=== PATIENT | female | born 2000 | race Hispanic/Latino ===

== ENCOUNTER 2019-05-17 00:31 | Day surgery (SDC) | payer OTHER ==
[2019-05-17 00:59] VITALS: BP 136/85; TEMP 98.5; BMI 36.3
--- NOTE | 2019-05-17 01:25 | PDOC.FPROB ---
FMR OB H&P: Medications - Current Home Medications: Medication Instructions Recorded Confirmed Type 21/Iron Fu/Folic Acid 1 tablet PO DAILY 05/17/19 05/17/19 History [ Complete Caplet] Allergies/Adverse Reactions: Allergies Allergy/AdvReac Type Severity Reaction Status Date / Time No Known Allergies Allergy Verified 05/17/19 00:54 FMR OB H&P: Vital Signs - Maternal Vital signs: Vital Signs - First Documented Temp Pulse Resp BP Pulse Ox 98.5 F 80 18 136/85 96 05/17/19 00:52 05/17/19 00:52 05/17/19 00:52 05/17/19 00:52 05/17/19 00:52 FMR OB H&P: A/P - Problem List (1) Status: Acute Discussion: Date/Time: 05/17/19 0124 PCP: Chelsea HPI: Patient comes in for evaluation of epigastric pain that began at 2337 and resolved around 0030 spontaneously. The pain was a constant pressure that did not come and go. Nothing specifically made it better or worse. She states she ate pizza, mole and pasta today. Denies N/V/D. Denies fevers, chills, sweats. States she has had irregular contractions but nothing consistent. History: OB hx: G1 PMH: denies HTN, DM, asthma PSH: negative Meds: PNV All: NKDA Soc Hx: denies smoking, alcohol, drugs Fam Hx: denies downs, congenital defects REVIEW OF SYSTEMS: Gen: no fever, chills, or sweats Neuro: no numbness/tingling, no weakness ENT: denies congestion Eyes: no visual changes Resp: denies cough, no production, no SOB, no wheeze Card: denies chest pain, no palpitations GI: denies nausea, vomiting, diarrhea : no dysuria, no hematuria Skin: no rash, no erythema Psych: denies hx anxiety/depression Vitals: T: 98.4 R: 18 BP: 134/84 P:68 at: 98% on RA PHYSICAL EXAMINATION: General: NAD, alert and oriented x3 HEENT: EOMI, normal sclera Neck: Supple. Full ROM. Heart/Cardiovascular System: RRR, Cap refill < 3 seconds, no rub, no murmur Lungs/Respiratory System: clear to auscultation bilaterally. No increased work of breathing. Room air. Abdomen/Gastro-Intestinal System: no abdominal tenderness, normal bowel sounds, Gravid Extremities: Warm extremities. No cyanosis or edema. Neuro: No gross deficits appreciated Psychiatry: Awake, Alert and cooperative with exam Skin: no lesions, no rashes Musculoskeletal: Full ROM A/P: This is a 18 yo at 37.5 wks here for epigastric pain now resolved FHT: 115 baseline, mod variability, no decels, accels present Athalia: no contractions # Labor Check - 250/-3, same as office Saturday per patient - Epigastric pain now totally resolved - Denies headache, scotoma, sob, or swelling - Normal pressures - Tolerated PO liquids - Home with precations Addendum - Attending - Attending Attestation Date/Time: 05/17/19 6904 I personally evaluated the patient and discussed the management with Dr. Castrejon. I agree with the History, Examination, Assessment and Plan documented above.
[2019-05-17] MEDS ORDERED: hydrALAZINE 20 MG/ML VIAL SLOW IVP PRN (01:48)
== END 2019-05-17 01:55 | disposition home or self-care (01) ==
LOC: L&D/OP 00:31
PROVIDERS: ATTEND Obstetrics & Gynecology
DX: O99.89 Other specified diseases and conditions complicating pregnancy, childbirth and the puerperium (principal); R10.13 Epigastric pain; Z3A.37 37 weeks gestation of pregnancy; Z79.899 Other long term (current) drug therapy

== ENCOUNTER 2019-05-19 12:11 | Inpatient (IN) | payer OTHER ==
[2019-05-19] MEDS ORDERED: Misoprostol 200 MCG TAB PR PRN (12:16)
[2019-05-19] MEDS ORDERED: Ondansetron PF 4 MG/2 ML Vial IVP PRN ×2 (12:16→15:45)
[2019-05-19] MEDS ORDERED: Docusate 100 MG CAP PO PRN (12:16)
[2019-05-19] MEDS ORDERED: Promethazine HCl 25 MG/ML VIAL IM PRN ×2 (12:16→15:45)
[2019-05-19] MEDS ORDERED: Acetaminophen 500 MG TAB PO PRN (12:16)
[2019-05-19] MEDS ORDERED: Ibuprofen 800 MG TAB PO PRN (12:16)
[2019-05-19] MEDS ORDERED: Lidocaine 1% (PF) 30 ML VIAL SC PRN (12:16)
[2019-05-19] MEDS ORDERED: HYDROcodone/Acetaminophen 5/325 mg Tablet PO PRN ×2 (12:16)
[2019-05-19] MEDS ORDERED: Diphenoxylate HCl/Atropine Tablet PO PRN ×2 (12:16)
[2019-05-19] MEDS ORDERED: Butorphanol Tartrate 1 MG/ML VIAL SLOW IVP PRN (12:16)
[2019-05-19] MEDS ORDERED: hydrALAZINE 20 MG/ML VIAL SLOW IVP PRN (12:16)
[2019-05-19] MEDS ORDERED: NS / Oxytocin 40 units/1000ml 1,000 ML IV PRN (12:16)
[2019-05-19 12:58] VITALS: BMI 35.8
[2019-05-19] MEDS: Lactated Ringer's 1,000 ML IV SCH ×2 (13:27→15:48)
[2019-05-19] MEDS ORDERED: NS w/ Oxytocin 10 units 500 ML IV SCH ×2 (13:30)
[2019-05-19 13:43] LABS: Hemoglobin 11.7 g/dL (12.0-16.0); Mean Corpuscular HGB CONC 33.1 g/dL (32.0-36.0); Mean Corpuscular Hemoglobin 26.3 pg (25.0-35.0); Mean Corpuscular Volume 79.4 fL (78.0-98.0); Mean Platelet Volume 8.4 fL (7.4-10.4); Platelet Count 297 thou/uL (130-400); Red Blood Cell (RBC) Count 4.47 mill/uL (4.00-5.20); White Blood Cell (WBC) Count 11.9 thou/uL (4.8-10.8)
[2019-05-19 14:23] LABS: Syphilis Antibody Nonreactive (Nonreactive); Syphilis Antibody Index 0.05 S/CO (<1.00 Non-Reactive)
[2019-05-19 14:24] LABS: HBSAg Index 0.16 S/CO (0-0.99); Hep B Surf Ag Non-Reactive S/CO (NonReactive)
[2019-05-19] MEDS ORDERED: Lidocaine 1.5%/Epinephrine 1:200,000 5 ML AMPUL IJ ONE (14:54)
[2019-05-19] MEDS ORDERED: Fentanyl 4 mcg/Bup 0.1% Cadd 100 ML ONE ×2 (14:56→22:42)
[2019-05-19] MEDS ORDERED: Acetaminophen 325 MG TAB PO PRN (15:45)
[2019-05-19] MEDS ORDERED: Communication Order-Pharmacy FS SCH (15:45)
[2019-05-19] MEDS ORDERED: ePHEDrine/0.9% NaCl/PF SYRINGE 50 mg/10 ml SLOW IVP PRN (15:45)
[2019-05-19] MEDS ORDERED: Naloxone HCl 0.4 mg/ml Vial IVP PRN ×2 (15:45)
[2019-05-19] MEDS ORDERED: Fentanyl 4 mcg/Bupivacaine 0.1% Cassette 100 ML EPIDURAL SCH (15:45)
[2019-05-19] MEDS ORDERED: Lactated Ringer's 500 ML IV PRN (15:45)
[2019-05-19] MEDS ORDERED: diphenhydrAMINE 50 MG/ML VIAL IVP PRN (15:45)
[2019-05-19] MEDS ORDERED: hydrALAZINE 20 MG/ML VIAL ONE (17:08)
[2019-05-20] MEDS ORDERED: Benzocaine-Menthol 82.5 ML CAN TOP PRN (01:33)
[2019-05-20] MEDS ORDERED: Ondansetron PF 4 MG/2 ML Vial IVP PRN (01:33)
[2019-05-20] MEDS ORDERED: hydrALAZINE 20 MG/ML VIAL SLOW IVP PRN (01:33)
[2019-05-20] MEDS ORDERED: Preparation H Ointment 28 GM TUBE PR PRN (01:33)
[2019-05-20] MEDS ORDERED: Misoprostol 200 MCG TAB VAG PRN (01:33)
[2019-05-20] MEDS ORDERED: Lanolin Ointment 7 GM TUBE TOP PRN (01:33)
[2019-05-20] MEDS ORDERED: Acetaminophen/Codeine 30-300mg Tablet PO PRN ×2 (01:33)
[2019-05-20] MEDS ORDERED: Bisacodyl 10 MG SUPP PR PRN (01:33)
[2019-05-20] MEDS ORDERED: Milk Of Magnesia 30 ML UDCUP PO PRN (01:33)
[2019-05-20] MEDS ORDERED: Zolpidem Tartrate 5 MG TAB PO PRN (01:33)
[2019-05-20] MEDS ORDERED: NS / Oxytocin 40 units/1000ml 1,000 ML IV SCH (01:45)
[2019-05-20] MEDS: Ibuprofen 800 MG TAB PO SCH ×3 (06:34→21:36)
[2019-05-20] MEDS ORDERED: Adacel (T-DAP) 0.5 ML SYRINGE IM ONE (09:00)
[2019-05-20] MEDS: Prenatal Vitamin 1 TAB PO SCH (09:59)
[2019-05-20] MEDS: Docusate Calcium (SURFAK) 240 MG CAP PO SCH ×2 (10:00→21:35)
[2019-05-20] MEDS: Ferrous Sulfate 325 MG TAB PO SCH ×2 (14:20→18:26)
[2019-05-21] MEDS: Ibuprofen 800 MG TAB PO SCH ×2 (05:56→14:58)
[2019-05-21 08:03] VITALS: BP 112/69; TEMP 99
[2019-05-21] MEDS: Prenatal Vitamin 1 TAB PO SCH (08:34)
[2019-05-21] MEDS: Docusate Calcium (SURFAK) 240 MG CAP PO SCH (08:34)
[2019-05-21] MEDS: Ferrous Sulfate 325 MG TAB PO SCH (08:35)
== END 2019-05-21 15:15 | disposition home or self-care (01) | DRG 807 ==
LOC: L&D/OP 12:11 → L&D 12:57 → 3SW 05-20 04:28
PROVIDERS: ADMIT Obstetrics & Gynecology; ATTEND Obstetrics & Gynecology
PROC: 10E0XZZ Delivery of Products of Conception, External Approach (ICD-10-PCS; principal; 2019-05-20)
PROC: 0HQ9XZZ Repair Perineum Skin, External Approach (ICD-10-PCS; 2019-05-20)
DX: O99.814 Abnormal glucose complicating childbirth (principal); Z37.0 Single live birth; Z3A.38 38 weeks gestation of pregnancy; O70.0 First degree perineal laceration during delivery
CPT/HCPCS: 36415; 85027; 86780; 86850; 86900; 86901; 87340; J0360; J2590; J3490

== ENCOUNTER 2019-06-21 22:00 | Inpatient (IN) | payer OTHER ==
[2019-06-21 22:22] LABS: #Basophils 0.1 thou/uL (0.0-0.2); #Eosinphils 0.1 thou/uL (0.0-0.7); #Lymphocytes 1.7 thou/uL (1.20-3.40); #Monocytes 0.6 thou/uL (0.11-0.59); #Neutrophils 7.4 thou/uL (1.40-6.50); %Basophils 0.5 % (0.0-1.0); %Eosinophils 1.5 % (0.0-10.0); %Lymphocytes 17.3 % (28.0-48.0); %Monocytes 6.5 % (0.0-4.0); %Neutrophils 74.2 % (31.0-61.0); Hemoglobin 12.6 g/dL (12.0-16.0); Mean Corpuscular HGB CONC 32.8 g/dL (32.0-36.0); Mean Corpuscular Hemoglobin 26.1 pg (25.0-35.0); Mean Corpuscular Volume 79.7 fL (78.0-98.0); Mean Platelet Volume 8.5 fL (7.4-10.4); Platelet Count 320 thou/uL (130-400); RBC Distribution Width 13.7 % (11.5-14.5); Red Blood Cell (RBC) Count 4.81 mill/uL (4.00-5.20); White Blood Cell (WBC) Count 9.9 thou/uL (4.8-10.8)
[2019-06-21 22:29] LABS: BHCG - Serum Negative (NEGATIVE); Pregs Control Background? CLEAR/WHITE (CLR/WHITE); Pregs Control Bar Appear? YES (CONTROL BAR)
[2019-06-21] MEDS ORDERED: Ondansetron PF 4 MG/2 ML Vial ONE (22:38)
[2019-06-21 22:44] LABS: ALT (SGPT) 418 U/L (8-55); AST (SGOT) 300 U/L (5-30); Albumin 4.2 g/dL (3.5-5.0); Alkaline Phosphatase 307 U/L (40-100); Anion Gap 13 mmol/L (10-20); BUN (Urea Nitrogen) 10 mg/dL (8.4-21.0); Calc. Creatinine Clearance 0 mL/min (70-130); Calcium 9.2 mg/dL (7.8-10.44); Carbon Dioxide 26 mmol/L (22-29); Chloride 106 mmol/L (98-107); Estimated GFR-MDRD Greater than 90; Globulin 3.2 g/dL (2.4-3.5); Glucose 103 mg/dL (70-105); Potassium 3.8 mmol/L (3.5-5.1); Protein, Total 7.4 g/dL (6.0-8.3); Sodium 141 mmol/L (136-145)
[2019-06-21 23:00] LABS: Bacteria/HPF None Seen HPF (None Seen); Bilirubin Negative (Negative); Blood, Urine 1+ (Negative); Clarity Clear (Clear); Glucose, Urine (Dipstick) Normal (Negative); Leukocyte Negative Leu/uL (Negative); Nitrite Negative (Negative); Protein, Urine (Dipstick) Negative (Neg-Trace); RBC/HPF 0-3 HPF (0-3); Squamous Epithelial 0-3 HPF (0-3); WBC/HPF 0-3 HPF (0-3)
--- NOTE | 2019-06-21 23:34 | ULT ---
Exam: Right upper quadrant ultrasound: HISTORY: Right upper quadrant abdominal pain with nausea and vomiting and elevated liver function tests. COMPARISON: 06/15/2019. FINDINGS: Liver: Mild increase in echogenicity relative to the right kidney suggesting fatty infiltration. Gallbladder: As noted on the prior examination, shadowing echogenic foci related to gallbladder calcu li are seen in the gallbladder lumen. Gallbladder wall thickening again persists with gallbladder wall measuring 4 mm in thickness. Club Concierge does note a positive sonographic Becker's sign. Common bile duct: Common duct is mildly dilated measuring 7 mm but tapers to more normal caliber furt her distally measuring 5 mm. Pancreas: Limited visualized portions of the pancreas demonstrate a normal sonographic appearance. Right kidney: Right kidney demonstrates a normal sonographic appearance. The right kidney measures 1 1.6 cm. IVC: The visualized IVC demonstrates a normal sonographic appearance. IMPRESSION: 1. Cholelithiasis and mildly thickened gallbladder wall. No pericholecystic fluid is identified. Thes e findings are stable compared to the prior exam. The corrections counselor does note a positive sonographic Becker's sign. Hepatobiliary study may be helpful for further evaluation. 2. The common duct is mildly dilated on today's examination measuring 7 mm, but the common duct does taper to more normal caliber near the level of the pancreatic head measuring 5 mm. No intrahepatic biliary ductal dilatation is seen. Exact etiology for common duct dilatation is not identified on thi s exam. 3. Mild fatty infiltration of the liver.
[2019-06-22] MEDS ORDERED: Sodium Chloride 0.9% 1,000 ML IV SCH (02:40)
[2019-06-22] MEDS ORDERED: Ondansetron PF 4 MG/2 ML Vial IVP PRN ×2 (02:40→10:45)
[2019-06-22] MEDS ORDERED: HYDROcodone/Acetaminophen 5/325 mg Tablet PO PRN ×2 (02:40)
[2019-06-22] MEDS ORDERED: Ondansetron ODT 4 MG TAB SL PRN (02:40)
[2019-06-22] MEDS ORDERED: Acetaminophen 325 MG TAB PO PRN (02:40)
[2019-06-22 02:58] VITALS: BMI 32.5
[2019-06-22 04:46] LABS: #Basophils 0.1 thou/uL (0.0-0.2); #Eosinphils 0.2 thou/uL (0.0-0.7); #Lymphocytes 2.9 thou/uL (1.20-3.40); #Monocytes 0.5 thou/uL (0.11-0.59); #Neutrophils 3.8 thou/uL (1.40-6.50); %Eosinophils 2.6 % (0.0-10.0); %Lymphocytes 39.2 % (28.0-48.0); %Monocytes 6.7 % (0.0-4.0); %Neutrophils 50.5 % (31.0-61.0); Mean Corpuscular HGB CONC 31.8 g/dL (32.0-36.0); Mean Corpuscular Hemoglobin 25.7 pg (25.0-35.0); Mean Corpuscular Volume 80.6 fL (78.0-98.0); Mean Platelet Volume 8.6 fL (7.4-10.4); Platelet Count 282 thou/uL (130-400); RBC Distribution Width 13.6 % (11.5-14.5); Red Blood Cell (RBC) Count 4.29 mill/uL (4.00-5.20); White Blood Cell (WBC) Count 7.5 thou/uL (4.8-10.8)
[2019-06-22 05:05] LABS: ALT (SGPT) 358 U/L (8-55); AST (SGOT) 209 U/L (5-30); Albumin 3.7 g/dL (3.5-5.0); Alkaline Phosphatase 255 U/L (40-100); Anion Gap 10 mmol/L (10-20); BUN (Urea Nitrogen) 7 mg/dL (8.4-21.0); Bilirubin, Direct 0.4 mg/dL (0.1-0.3); Bilirubin, Total 0.8 mg/dL (0.2-1.2); Calc. Creatinine Clearance 195 mL/min (70-130); Calcium 8.6 mg/dL (7.8-10.44); Carbon Dioxide 27 mmol/L (22-29); Chloride 107 mmol/L (98-107); Estimated GFR-MDRD Greater than 90; Glucose 93 mg/dL (70-105); Potassium 3.8 mmol/L (3.5-5.1); Protein, Total 6.3 g/dL (6.0-8.3); Sodium 140 mmol/L (136-145)
--- NOTE | 2019-06-22 08:43 | HP ---
CHIEF COMPLAINT: Right upper quadrant abdominal pain. HISTORY OF PRESENT ILLNESS: This is a 18-year-old female, 6 weeks with a 3-week history of right upper quadrant pain radiating to back associated with nausea and vomiting. No fever. Ultrasound shows cholelithiasis. PAST MEDICAL HISTORY: Otherwise healthy. PAST SURGICAL HISTORY: None. MEDICATIONS: She is on aspirin. ALLERGIES: NO KNOWN DRUG ALLERGIES. SOCIAL HISTORY: She is single and unemployed. No tobacco or alcohol. FAMILY HISTORY: Diabetes and hypertension. PHYSICAL EXAMINATION: VITAL SIGNS: Temperature 97.5, pulse 65, blood pressure 138/88. GENERAL: Well-developed, well-nourished female, in no apparent distress. HEENT: Unremarkable. No jaundice. LUNGS: Clear. HEART: Regular rate and rhythm. ABDOMEN: Soft. Tender in the right upper quadrant. EXTREMITIES: Unremarkable. LABORATORY DATA: Her white count is 7.5, H and H are 11 and 34, platelet count 282. Her LFTs are elevated. Bilirubin 0.7. AST 209, ALT 358, alkaline phosphatase 255. Serum is negative. ASSESSMENT: Symptomatic cholelithiasis with elevated liver functions. PLAN: Laparoscopic cholecystectomy with cholangiogram. CONSENT: I have discussed planned procedure as well as risk of bleeding, infection, injury to bile duct and bowel, need to open, she understands and gives informed consent. Job ID: [id number]
[2019-06-22] MEDS ORDERED: Sodium Chloride 0.9% 100 ML ONE (09:18)
[2019-06-22] MEDS ORDERED: cefOXitin 2 GM VIAL ONE (09:18)
[2019-06-22] MEDS ORDERED: Bupivacaine HCl 0.5%/Epinephrine 1:200,000/PF 30 ml Vial ONE (09:20)
[2019-06-22] MEDS ORDERED: Iothalamate Meglumine 60% 50 ML VIAL FS ONE (09:20)
[2019-06-22] MEDS ORDERED: Midazolam HCl 2 mg/2 ml Vial ONE (09:25)
[2019-06-22] MEDS ORDERED: Fentanyl 100 MCG/2 ML VIAL ONE ×2 (09:25→11:20)
[2019-06-22] MEDS ORDERED: Lidocaine 1% PF 5 ML VIAL ONE (10:14)
[2019-06-22] MEDS ORDERED: Rocuronium Bromide 10 MG/ML (10ML VIAL) ONE (10:14)
[2019-06-22] MEDS ORDERED: Dexamethasone 20 MG/5 ML VIAL ONE (10:14)
[2019-06-22] MEDS ORDERED: Ketorolac Tromethamine 30 MG/ML VIAL ONE (10:14)
[2019-06-22] MEDS ORDERED: PROPOFOL 200 MG/20 ML VIAL ONE (10:14)
[2019-06-22] MEDS ORDERED: Ondansetron PF 4 MG/2 ML Vial ONE (10:14)
[2019-06-22] MEDS ORDERED: Glycopyrrolate 0.2 MG/ML 5 ML SYRINGE ONE (10:14)
[2019-06-22] MEDS ORDERED: Morphine 2 MG/ML SYRINGE SLOW IVP PRN (10:45)
[2019-06-22] MEDS ORDERED: hydrALAZINE 20 MG/ML VIAL SLOW IVP PRN (10:45)
[2019-06-22] MEDS ORDERED: Morphine 4 MG/ML VIAL SLOW IVP PRN (10:45)
[2019-06-22] MEDS ORDERED: Dextrose 5% in Water 1,000 ML IV PRN (10:45)
[2019-06-22] MEDS ORDERED: HYDROcodone/Acetaminophen 10/325 mg Tablet PO PRN (10:45)
[2019-06-22] MEDS ORDERED: Promethazine HCl 25 MG/ML VIAL IM PRN (10:45)
[2019-06-22] MEDS ORDERED: Dextrose 50% Abboject 50 ML SYRINGE SLOW IVP PRN (10:45)
[2019-06-22] MEDS ORDERED: Mag-Al 1200 mg/1200 mg/30 ML UDCUP PO PRN (10:45)
[2019-06-22] MEDS ORDERED: Calcium Carbonate 500 MG ChewTAB PO PRN (10:45)
--- NOTE | 2019-06-22 12:12 | RAD ---
OPERATIVE CHOLANGIOGRAM: Date: 06/22/19 HISTORY: Intraoperative film. FINDINGS: Single film is presented for interpretation. This shows filling of a nondilated common bile duct. Por tions of the more distal common duct are obscured. There is emptying into the duodenum. I do not see any definite filling defects. IMPRESSION: Limited but unremarkable operative cholangiogram. POS: TPC
[2019-06-22] MEDS: Ketorolac Tromethamine 30 MG/ML VIAL IVP SCH ×3 (12:14→23:33)
[2019-06-22] MEDS: D5 1/2 NS w/20 mEq KCL 1,000 ML IV SCH ×2 (12:28→20:02)
[2019-06-22] MEDS: HYDROcodone/Acetaminophen 10/325 mg Tablet PO PRN ×2 (13:41→20:01)
[2019-06-22] MEDS: Famotidine 20 MG TAB PO SCH (20:02)
[2019-06-22] MEDS: Famotidine/PF 20 mg/2ml Vial SLOW IVP SCH (20:03)
[2019-06-23] MEDS: D5 1/2 NS w/20 mEq KCL 1,000 ML IV SCH (05:12)
[2019-06-23] MEDS: Ketorolac Tromethamine 30 MG/ML VIAL IVP SCH (05:12)
[2019-06-23 05:19] LABS: #Eosinphils 0.1 thou/uL (0.0-0.7); #Monocytes 0.7 thou/uL (0.11-0.59); #Neutrophils 7.2 thou/uL (1.40-6.50); %Basophils 0.2 % (0.0-1.0); %Lymphocytes 26.9 % (28.0-48.0); %Monocytes 6.7 % (0.0-4.0); %Neutrophils 65.2 % (31.0-61.0); Hemoglobin 10.8 g/dL (12.0-16.0); Mean Corpuscular HGB CONC 31.6 g/dL (32.0-36.0); Mean Corpuscular Hemoglobin 25.9 pg (25.0-35.0); Mean Corpuscular Volume 81.9 fL (78.0-98.0); Mean Platelet Volume 8.7 fL (7.4-10.4); Platelet Count 290 thou/uL (130-400); RBC Distribution Width 13.7 % (11.5-14.5); Red Blood Cell (RBC) Count 4.15 mill/uL (4.00-5.20)
[2019-06-23 05:29] LABS: ALT (SGPT) 245 U/L (8-55); AST (SGOT) 88 U/L (5-30); Albumin 3.5 g/dL (3.5-5.0); Alkaline Phosphatase 211 U/L (40-100); Anion Gap 10 mmol/L (10-20); BUN (Urea Nitrogen) 6 mg/dL (8.4-21.0); Bilirubin, Total 0.5 mg/dL (0.2-1.2); Calc. Creatinine Clearance 189 mL/min (70-130); Calcium 8.5 mg/dL (7.8-10.44); Carbon Dioxide 27 mmol/L (22-29); Chloride 106 mmol/L (98-107); Estimated GFR-MDRD Greater than 90; Globulin 2.7 g/dL (2.4-3.5); Glucose 99 mg/dL (70-105); Lipase 18 U/L (8-78); Potassium 4.4 mmol/L (3.5-5.1); Protein, Total 6.2 g/dL (6.0-8.3); Sodium 139 mmol/L (136-145)
[2019-06-23 07:16] VITALS: BP 123/78; TEMP 97.3
--- NOTE | 2019-06-23 08:02 | OP ---
DATE OF PROCEDURE: 06/22/2019 PREOPERATIVE DIAGNOSIS: Acute cholecystitis. PROCEDURE PERFORMED: Laparoscopic cholecystectomy. INDICATIONS: A 18-year-old female, who has had about a 1-month history of pain, which much worse over the last 2 days, had ultrasound showing cholelithiasis. She had elevated liver function tests. FINDINGS: Thickened gallbladder wall. Cholangiogram showed free flow into the duodenum. No filling defects. DESCRIPTION OF PROCEDURE: After informed consent was obtained, the patient was taken to the operating room, given general endotracheal anesthesia and placed in supine position. Abdomen was prepped and draped in usual fashion. Local anesthesia was infiltrated subcutaneously and deep, and a subumbilical incision was performed. Subcu was divided sharply. The fascia was grasped with 2 stay sutures of 0 Vicryl placed in each side of midline. Midline incised. Digital palpation revealed no local adhesions. A blunt 12 mm trocar was inserted. Pneumoperitoneum was created to a pressure of 15 mmHg. A 0-degree laparoscope was inserted under direct vision. Three 5 mm ports were placed subcostally. The gallbladder was grasped and advanced superiorly. The peritoneum was dissected distally to reveal the cystic duct artery in critical view. The cystic duct was dilated. A clip was placed at the base of the gallbladder, and incision was made in the cystic duct and an Arrow cholangiocatheter was inserted. Intraoperative cholangiogram showed free flow into the duodenum, no filling defects. The duct was too large to clip, so just distal to the gallbladder, the duct was divided and ligated with two 0 PDS Endoloops. Then, the artery was triply ligated with hemoclips and divided. The gallbladder was removed from its fossa utilizing electrocautery, removed from the abdomen through the umbilical port. Hemostasis was assured. Trocars and retractors were removed. The fascia was closed with interrupted 0 Vicryl sutures. Skin was closed with interrupted 4-0 Rapide. Dermabond was applied. The patient tolerated the procedure well, transferred to Recovery in good condition. Sponge and needle count verified correct x2. Job ID: [id number]
[2019-06-23] MEDS: Famotidine/PF 20 mg/2ml Vial SLOW IVP SCH (08:25)
[2019-06-23] MEDS: HYDROcodone/Acetaminophen 10/325 mg Tablet PO PRN (08:30)
[2019-06-23] MEDS: Famotidine 20 MG TAB PO SCH (08:30)
[2019-06-23] MEDS ORDERED: Enoxaparin Sodium 40 MG/0.4 ML SYRINGE SC SCH (09:00)
--- NOTE | 2019-06-23 10:28 | DIS ---
DATE OF ADMISSION: 06/22/2019 DATE OF DISCHARGE: 06/23/2019 DISCHARGE DIAGNOSES: Acute cholecystitis with elevated liver function tests, intrauterine . PROCEDURES DURING ADMISSION: Pelvic ultrasound, laparoscopic cholecystectomy with intraoperative cholangiogram. HOSPITAL COURSE: The patient was admitted and taken to the operating room, where she underwent a laparoscopic cholecystectomy. She was found to have a thickened gallbladder wall. Cholangiogram was performed. This showed free flow into the duodenum. No filling defects. Postoperatively, she is doing well. She is tolerating liquids. Pain is controlled on p.o. medications. She is discharged home on hydrocodone and Zofran. She will follow up with me in 2 weeks. Job ID: [id number]
--- NOTE | 2019-06-25 02:44 | PQF ---
CHAPITO MOY JOHN A JR MD [id number] [place] [id number] CLINICAL DOCUMENTATION CLARIFICATION FORM: POST DISCHARGE Addendum to original discharge summary date: ____ Late entry note date: __ DATE: 06/25/19 ATTN: Ron Acevedo Please exercise your independent, professional judgment in responding to the clarification form. Clinical indicators are provided on the bottom of this form for your review. Can you please further specify if Cholelithiasis with acute cholecystitis associated to puerperium state nor not? Please check appropriate box(s): [ ] Cholelithiasis with acute cholecystitis associated to puerperium state [ ] Cholelithiasis with acute cholecystitis not associated to puerperium state [ ] Other diagnosis please specify [ x ] Unable to determine In addition, please specify: Present on Admission (POA): [ ] Yes [ ] No [ ] Unable to determine For continuity of documentation, please document condition throughout progress notes and discharge summary. Thank You. CLINICAL INDICATORS - SIGNS / SYMPTOMS / LABS H and P pg.1- 18 years old female, 6weeks post with a 3 weeks history of right upper quadrant pain H and P pg.1- ultrasound shows cholelithiasis RISK FACTORS symptomatic cholelithiasis- H and P pg.1 acute cholecystitis- Op Report 06/22 pg.1 6weeks post - H and P pg.1 TREATMENTS: Laparoscopic cholecystectomy- Op report 06/22 pg. IV Fluids- OCT 20 Abdomen ultrasound 06/21 (This form is maintained as a part of the permanent medical record) 2014 [email or web address]. All Rights Reserved [email or web address] [not provided] [email or web address]
== END 2019-06-23 10:01 | disposition home or self-care (01) | DRG 769 ==
LOC: ERS 22:00 → SURG A 06-22 00:29
PROVIDERS: ADMIT Surgery; ATTEND Surgery
PROC: 0FT44ZZ Resection of Gallbladder, Percutaneous Endoscopic Approach (ICD-10-PCS; principal; 2019-06-22)
PROC: BF10YZZ Fluoroscopy of Bile Ducts using Other Contrast (ICD-10-PCS; 2019-06-22)
DX: O99.63 Diseases of the digestive system complicating the puerperium (principal); K80.00 Calculus of gallbladder with acute cholecystitis without obstruction
CPT/HCPCS: 36415; 47532; 76705; 80048; 80053; 80076; 81003; 81015; 82248; 83690; 84703; 85025; 88304; 93005; 96361; 96374; J0670; J0694; J1100; J1650; J1885; J2001; J2250; J2405; J2704; J3010; J3490